=== PATIENT | female | born 1960 | race Caucasian/White ===

== ENCOUNTER → 2022-09-16 | Day surgery (SDC) | payer MEDICAID ==
[~2022-09-16] VITALS: Ht 160 cm; Wt 105.9 kg
[~2022-09-16] MED LIST: FentaNYL CITRATE PF 100 MCG/2 ML VIAL ONE; MIDAZOLAM HCL 2 MG/2 ML VIAL ONE; SODIUM CHLORIDE 0.9% 1,000 ML IV ONE; SODIUM CHLORIDE 0.9% 1,000 ML ONE
[2022-09-16 13:17] LABS: COVID AG,FIA SOURCE NASAL SWAB
== END | disposition still patient (30) ==
LOC: SURGERY 10:41
PROVIDERS: ATTEND Internal Medicine Gastroenterology
DX: K29.50 Unspecified chronic gastritis without bleeding (principal); K44.9 Diaphragmatic hernia without obstruction or gangrene; I10 Essential (primary) hypertension; Z20.822 Contact with and (suspected) exposure to COVID-19; Z88.8 Allergy status to other drugs, medicaments and biological substances; Z90.49 Acquired absence of other specified parts of digestive tract; Z98.890 Other specified postprocedural states; Z79.899 Other long term (current) drug therapy
CPT/HCPCS: 43239; 87426; 88305; 88312; 88313; 99152; J3010; J2250; J7030; C9803